=== PATIENT | female | born 1995 | race Caucasian/White ===

== ENCOUNTER 2019-06-17 20:09 | Emergency (ER) | payer MEDICAID ==
[~2019-06-17] VITALS: Ht 154.9 cm; Wt 67.1 kg
[2019-06-17 20:15] VITALS: Ht 154.9 cm; Wt 67.1 kg
[2019-06-17 21:15] VITALS: BP 122/50
== END 2019-06-17 21:15 | disposition home or self-care (01) ==
LOC: ED 20:09
DX: S10.93XA Contusion of unspecified part of neck, initial encounter (principal); J03.90 Acute tonsillitis, unspecified; Y04.0XXA Assault by unarmed brawl or fight, initial encounter; Y93.89 Activity, other specified; Y92.89 Other specified places as the place of occurrence of the external cause; Y99.8 Other external cause status